=== PATIENT | female | born 1960 | race Hispanic/Latino ===

== ENCOUNTER 2018-09-21 22:20 | Emergency (ER) | payer OTHER, SELFPAY ==
[2018-09-21] MEDS ORDERED: SODIUM CHLORIDE 0.9% 1000ML 2,000 ML IV ONE (22:38)
[2018-09-21] MEDS ORDERED: ONDANSETRON HCL 4 MG/2 ML VIAL ONE (22:38)
[2018-09-21 22:44] LABS: BASOPHILS % (AUTO) 0.3 % (0.0-5.0); EOSINOPHILS % (AUTO) 0.4 % (0.0-8.0); HEMATOCRIT 46.8 % (36-48); MEAN CORPUSCULAR HEMOGLOBIN 30.3 pg (27.0-33.0); MEAN CORPUSCULAR HGB CONC 33.7 g/dL (32.0-36.0); NEUTROPHILS % (AUTO) 78.3 % (40.0-77.0); NUCLEATED RED BLOOD CELLS 0.1 % (0.0-0.19); PLATELET COUNT (AUTO) 230 K/uL (130-400); RED CELL DISTRIBUTION WIDTH 13.1 % (11.0-15.5); WHITE BLOOD COUNT (AUTO) 7.9 K/uL (4.8-10.8)
[2018-09-21 22:47] LABS: APPEARANCE,URINE Cloudy (CLEAR); BILIRUBIN,URINE Moderate (NEGATIVE); COLOR,URINE Dark Yellow (YELLOW); GLUCOSE, URINE (UA) Negative (NEGATIVE); KETONES,URINE 15 mg/dL (NEGATIVE); LEUKOCYTE ESTERASE ,URINE Trace (NEGATIVE); NITRATE,URINE Negative (NEGATIVE); OCCULT BLOOD,URINE Negative (NEGATIVE); PH,URINE 5.5 (5.0-8.0); PROTEIN,URINE POS 2+ (NEGATIVE)
[2018-09-21 22:54] LABS: BACTERIA,URINE Moderate /HPF (None Seen); MUCUS,URINE Few LPF (None Seen); POTASSIUM 3.3 mmol/L (3.5-5.1); RBC,URINE 0-1 /HPF (0-1)
[2018-09-21 23:00] LABS: ALBUMIN 4.1 g/dL (3.5-5.0); BILIRUBIN,TOTAL 0.6 mg/dL (0.2-1.0); TOTAL PROTEIN, SERUM 9.5 g/dL (6.0-8.3)
== END 2018-09-22 01:25 | disposition home or self-care (01) ==
LOC: EDH 22:20
DX: R19.7 Diarrhea, unspecified (principal); Z90.710 Acquired absence of both cervix and uterus; Z90.49 Acquired absence of other specified parts of digestive tract
CPT/HCPCS: 36415; 80053; 81001; 85025; 96360; 96361; 99283; J7030; 96374; J2405

== ENCOUNTER 2019-03-14 23:03 | Emergency (ER) | payer OTHER ==
[2019-03-15 00:03] LABS: BASOPHILS % (AUTO) 0.4 % (0.0-5.0); EOSINOPHILS % (AUTO) 2.5 % (0.0-8.0); HEMATOCRIT 35.5 % (36-48); LYMPHOCYTES % (AUTO) 41.7 % (21.0-51.0); MEAN CORPUSCULAR HGB CONC 34.2 g/dL (32.0-36.0); MEAN CORPUSCULAR VOLUME 90.5 fL (79-99); MONOCYTES % (AUTO) 6.2 % (3.0-13.0); NEUTROPHILS % (AUTO) 49.2 % (40.0-77.0); PLATELET COUNT (AUTO) 233 K/uL (130-400); RED BLOOD CELL COUNT(AUTO) 3.92 MIL/uL (4.00-5.50); RED CELL DISTRIBUTION WIDTH 12.9 % (11.0-15.5); WHITE BLOOD COUNT (AUTO) 7.3 K/uL (4.8-10.8)
[2019-03-15 00:31] LABS: CREATININE 0.7 mg/dL (0.5-1.5); POTASSIUM 3.5 mmol/L (3.5-5.1)
[2019-03-15 00:36] LABS: ALBUMIN 3.3 g/dL (3.5-5.0); BILIRUBIN,TOTAL 0.2 mg/dL (0.2-1.0); TOTAL PROTEIN, SERUM 7.1 g/dL (6.0-8.3)
== END 2019-03-15 00:59 | disposition home or self-care (01) ==
LOC: EDH 23:03
DX: H81.399 Other peripheral vertigo, unspecified ear (principal); G44.209 Tension-type headache, unspecified, not intractable; Z90.49 Acquired absence of other specified parts of digestive tract; Z98.51 Tubal ligation status
CPT/HCPCS: 36415; 80053; 85025; 96372

== ENCOUNTER 2019-04-23 23:17 | Emergency (ER) | payer OTHER ==
[2019-04-23 23:52] LABS: BASOPHILS % (AUTO) 0.7 % (0.0-5.0); EOSINOPHILS % (AUTO) 1.8 % (0.0-8.0); HEMATOCRIT 37.9 % (36-48); LYMPHOCYTES % (AUTO) 37.4 % (21.0-51.0); MEAN CORPUSCULAR HGB CONC 34.3 g/dL (32.0-36.0); MEAN CORPUSCULAR VOLUME 90.4 fL (79-99); MONOCYTES % (AUTO) 7.1 % (3.0-13.0); PLATELET COUNT (AUTO) 255 K/uL (130-400); RED CELL DISTRIBUTION WIDTH 12.9 % (11.0-15.5)
[2019-04-24] LABS: CREATININE 0.7 mg/dL (0.5-1.5); POTASSIUM 3.4 mmol/L (3.5-5.1)
[2019-04-24 00:05] LABS: ALBUMIN 3.6 g/dL (3.5-5.0); BILIRUBIN,TOTAL 0.3 mg/dL (0.2-1.0)
[2019-04-24] MEDS ORDERED: ASPIRIN 325 MG TABLET ONE (00:12)
[2019-04-24] MEDS ORDERED: NITROGLYCERIN 0.4 MG SL TAB SL ONE (00:12)
== END 2019-04-24 02:58 | disposition home or self-care (01) ==
LOC: EDH 23:17
DX: R07.89 Other chest pain (principal); F41.9 Anxiety disorder, unspecified; L40.9 Psoriasis, unspecified; Z90.49 Acquired absence of other specified parts of digestive tract; Z98.51 Tubal ligation status
CPT/HCPCS: 36415; 71045; 80053; 82550; 84484; 85025; 93005

== ENCOUNTER 2019-10-14 20:13 | Emergency (ER) | payer OTHER ==
[2019-10-14] MEDS ORDERED: ASPIRIN 325 MG TABLET ONE (20:44)
[2019-10-14] MEDS ORDERED: LORAZEPAM 2 MG/ML 1 ML VIAL ONE (20:45)
[2019-10-14 21:14] LABS: BASOPHILS % (AUTO) 0.2 % (0.0-5.0); EOSINOPHILS % (AUTO) 2.2 % (0.0-8.0); HEMATOCRIT 37.7 % (36-48); MEAN CORPUSCULAR HEMOGLOBIN 29.7 pg (27.0-33.0); MEAN CORPUSCULAR HGB CONC 33.4 g/dL (32.0-36.0); MEAN CORPUSCULAR VOLUME 88.9 fL (79-99); MONOCYTES % (AUTO) 8.5 % (3.0-13.0); NEUTROPHILS % (AUTO) 55.9 % (40.0-77.0); PLATELET COUNT (AUTO) 226 K/uL (130-400); RED BLOOD CELL COUNT(AUTO) 4.24 MIL/uL (4.00-5.50); RED CELL DISTRIBUTION WIDTH 12.7 % (11.0-15.5)
[2019-10-14 21:36] LABS: CREATININE 0.6 mg/dL (0.5-1.5); POTASSIUM 3.8 mmol/L (3.5-5.1)
[2019-10-14 21:37] LABS: INR 0.92 (0.85-1.15); PARTIAL THROMBOPLASTIN TIME 25.6 SEC (26.3-35.5); PROTHROMBIN TIME 9.7 SEC (9.6-11.6)
[2019-10-14 21:40] LABS: ALBUMIN 3.4 g/dL (3.5-5.0); BILIRUBIN,TOTAL 0.3 mg/dL (0.2-1.0); TOTAL PROTEIN, SERUM 7.7 g/dL (6.0-8.3)
== END 2019-10-14 23:31 | disposition home or self-care (01) ==
LOC: EDH 20:13
DX: R07.89 Other chest pain (principal); R20.2 Paresthesia of skin; R06.02 Shortness of breath; L40.9 Psoriasis, unspecified; Z98.51 Tubal ligation status; Z90.49 Acquired absence of other specified parts of digestive tract
CPT/HCPCS: 36415; 70450; 71045; 80053; 82550; 84484 ×2; 85025; 85610; 85730; 93005 ×2; 96374; 99285; J2060

== ENCOUNTER 2023-05-11 15:33 | Emergency (ER) | payer BC ==
[~2023-05-11] VITALS: Ht 160 cm; Wt 77.1 kg
[2023-05-11 15:43] VITALS: BP 143/96; PULSE 68; RESP 16; O2SAT 97
[2023-05-11] MEDS ORDERED: OLOP2.5D12 OP (17:10)
== END 2023-05-11 17:36 | disposition home or self-care (01) ==
LOC: EDH 15:33
DX: H10.9 Unspecified conjunctivitis (principal); Z90.49 Acquired absence of other specified parts of digestive tract
CPT/HCPCS: 99282

== ENCOUNTER 2025-01-04 16:54 | Emergency (ER) | payer BC ==
[~2025-01-04] VITALS: Ht 160 cm; Wt 89.4 kg
[~2025-01-04 16:54] MED LIST: OLOP2.5D12 OP
--- NOTE | 2025-01-04 19:05 | HMCIMG ---
TOE(S) 2+VWS RT INDICATION: r/o fx right 2nd toe TECHNIQUE: TOE(S) 2+VWS RT. FINDINGS AND IMPRESSION: Comminuted mildly displaced fracture of the distal phalanx of the second toe. There is diffuse soft tissue swelling involving the second toe No radiopaque foreign body is identified.
[2025-01-04] MEDS ORDERED: CEPH500B PO (19:49)
--- NOTE | 2025-01-04 19:49 | ERN ---
General Chief Complaint: Toe Pain/Injury Stated Complaint: RT FOOT TOE INJURY Time Seen by MD: 17:02 Time Seen by Midlevel: 17:02 Source: patient History of Present Illness Initial Comments Patient is a 64-year-old female with presenting to the emergency department with pain and swelling to her right 2nd toe. Patient states she dropped a lamp on her toe. She sustained a superficial abrasion/laceration to the right 2nd toe on progressively developed worsening swelling and bruising. She became concerned that she might have developed an abscess so she reported to the ER for further evaluation. Denies any fever, chills, or any other symptoms at this time. Allergies: Coded Allergies: No Known Drug Allergies (Unverified Allergy, Unknown, 03/15/19) Home Meds Active Scripts Olopatadine HCl (Pataday) 2.5 Ml Drops, 2.5 ML OP DAILY for 15 Days, #60 DROP Prov:DILEEP VARGAS MD 05/11/23 Past Medical History Past Medical History: No Pertinent History Past Surgical History: Cholecystectomy, BTL Social History Social History: Lives with family ROS Dictation CONSTITUTIONAL: Negative except for HPI HEAD/FACE: Negative except for HPI EENT: Negative except for HPI RESPIRATORY: Negative except for HPI GASTROINTESTINAL/ABDOMINAL: Negative except for HPI GENITOURINARY: Negative except for HPI MUSCULOSKELETAL: Negative except for HPI INTEGUMENTARY: Negative except for HPI NEUROLOGICAL/PSYCH: Negative except for HPI HEMATOLOGIC/LYMPHATIC: Negative except for HPI All Systems Negative, Except as noted above. 13 point review of systems assessed and all negative except for above. Physical Exam Physical Exam Dictation PHYSICAL EXAM: GENERAL: alert,, awake oriented x 3 HEENT: EOMI, Sclera non icteric, moist mucosa NECK: Supple, no JVD, trachea midline LUNGS: Clear breath sounds bilaterally. No wheezes HEART: Regular rate and rhythm. Normal S1 and S2, without murmurs ABD: Abdomen soft, nontender. Bowel sounds present EXT: Mild swelling and tenderness to the 2nd distal phalanx of the right foot NEURO: Alert and oriented to person, follows commands MDM MDM: Patient is a 64-year-old female with presenting to the emergency department with pain and swelling to her right 2nd toe. Patient states she dropped a lamp on her toe. She sustained a superficial abrasion/laceration to the right 2nd toe on progressively developed worsening swelling and bruising. She became concerned that she might have developed an abscess so she reported to the ER for further evaluation. Denies any fever, chills, or any other symptoms at this time. On physical examination there is some mild swelling and tenderness to the 2nd distal phalanx. X-ray reveals a comminuted fracture. There was an scabbing lesion overlying the superior aspect of the 2nd digit. There is swelling with bruising. She could have an underlying abscess however there is nothing drainable at this time. We will treat empirically with Keflex outpatient. Return precautions discussed. Patient is stable for discharge Differential diagnosis: Fracture, contusion, abscess There are no social concerns with this patient. Prescription drug management Prescriptions will include: Keflex Medical management and examination interpretation discussions were had by me with other qualified healthcare professionals as indicated for the patient's care. ED Course Orders Procedure Category Date Status Time Toe(S) 2+Vws Rt RAD 01/04/25 Resulted 18:14 Vital Signs Date Time Temp Pulse Resp B/P (MAP) Pulse Ox O2 Delivery O2 Flow Rate FiO2 01/04/25 17:16 98.8 64 18 119/71 100 Room Air 01/04/25 17:16 98.8 64 18 119/71 100 Room Air* 0 21 DX & DISP Disposition: Discharge Departure Impression: Primary Impression: Fracture of distal phalanx of toe of right foot Additional Impression: Hematoma of toe of right foot Condition: Stable Scripts Cephalexin Monohydrate (Keflex) 500 Mg Cap 500 MG PO BID for 5 Days, #10 CAP Prov: SERGIO HUBBARD 01/04/25 Referrals: KISHA GARAY MD (PCP) Time of Disposition: 19:44 I have reviewed the case, and I agree with, Diagnosis and Plan I performed the substantive portion of the visit. I have reviewed and personally made and approve the management plan that is documented in the note by myself or the JESÚS. I acknowledge for responsibility for the patient's management plan. SERGIO HUBBARD Jan 04, 2025 19:49
[2025-01-04 20:05] VITALS: BP 125/66; PULSE 63; RESP 15; TEMP 97.8; O2SAT 100
--- NOTE | 2025-01-04 20:05 | NUR ---
PATIENTS R GREAT TOE JESSICA TAPED WITH 2ND TOE
== END 2025-01-04 20:10 | disposition home or self-care (01) ==
LOC: EDH 16:54
DX: S92.531A Displaced fracture of distal phalanx of right lesser toe(s), initial encounter for closed fracture (principal); Z90.49 Acquired absence of other specified parts of digestive tract; Z98.51 Tubal ligation status; W20.8XXA Other cause of strike by thrown, projected or falling object, initial encounter; Y93.89 Activity, other specified; Y92.89 Other specified places as the place of occurrence of the external cause; Y99.8 Other external cause status
CPT/HCPCS: 73660; 99283

== ENCOUNTER 2025-07-28 16:04 | Emergency (ER) | payer BC ==
[~2025-07-28] VITALS: Ht 160 cm; Wt 81.6 kg
[~2025-07-28 16:04] MED LIST changes: +CEPH500B PO
[2025-07-28 16:06] VITALS: TEMP 98.2
[2025-07-28 16:37] LABS: IMMATURE GRANULOCYTE ABSOLUTE 0.02 K/uL (0-1); NUCLEATED RED BLOOD CELLS 0.0 % (0.0-0.19); PLATELET COUNT (AUTO) 230 K/uL (130-400); RED BLOOD CELL COUNT(AUTO) 4.42 MIL/uL (4.00-5.50); RED CELL DISTRIBUTION WIDTH 12.7 % (11.0-15.5); WHITE BLOOD COUNT (AUTO) 7.7 K/uL (4.8-10.8)
[2025-07-28 16:46] LABS: CREATININE 0.6 mg/dL (0.5-1.0); GLOMERULAR FILTR. RATE CALC 101.0 mL/min (>90); GLUCOSE,RANDOM 99.0 mg/dL (70-105); SODIUM SERUM 136.0 mmol/L (136-145); UREA NITROGEN, BLOOD 10.0 mg/dL (7-18)
[2025-07-28 16:50] LABS: ASPARTATE AMINOTRANSFERASE 35.0 U/L (10-37); TOTAL PROTEIN, SERUM 8.0 g/dL (6.0-8.3)
--- NOTE | 2025-07-28 17:03 | EKG ---
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
--- NOTE | 2025-07-28 18:03 | HMCIMG ---
EXAM: CR Chest, 1 View. CLINICAL HISTORY: sob COMPARISON: None provided. FINDINGS: LUNGS: The lungs show no infiltrate or other acute finding. PLEURAL SPACES: No pleural effusion or pneumothorax. MEDIASTINUM: The cardiomediastinal silhouette is within normal limits. BONES: No acute osseous abnormality. IMPRESSION: No acute cardiopulmonary pathology is evident. /[place]
[2025-07-28 18:22] VITALS: BP 148/81; PULSE 63; RESP 17; O2SAT 96
--- NOTE | 2025-07-28 18:27 | ERN ---
ED Note History of Present Illness Stated Complaint: SOB, DIZZY Chief Complaint: Shortness of Breath Time Seen by MD: 16:07 Dictation: 63-year-old female presenting to the emergency department with episode of generalized weakness nausea and mild shortness of breath, patient reports past few days with similar symptoms. No current chest pain or fever no abdominal pain. Allergies: Coded Allergies: No Known Drug Allergies (Unverified Allergy, Unknown, 03/15/19) Home Meds Active Scripts Ondansetron (Ondansetron Odt) 4 Mg Tab.rapdis, 4 MG PO BID for vomiting for 5 Days, #10 TAB Prov:JESUS ROBERTSON MD 07/28/25 Cephalexin Monohydrate (Keflex) 500 Mg Cap, 500 MG PO BID for 5 Days, #10 CAP Prov:SERGIO HUBBARD 01/04/25 Olopatadine HCl (Pataday) 2.5 Ml Drops, 2.5 ML OP DAILY for 15 Days, #60 DROP Prov:DILEEP VARGAS MD 05/11/23 Past Medical History Past Medical History: No Pertinent History Surgical History: Cholecystectomy, BTL Social History: Lives with family Review of System Dictation Constitutional: Negative for fever,chills, and weight loss Eyes: Negative for injury, pain,redness, and discharge ENT: Negative for injury,pain or swelling Cardiovascular: Negative for chest pain, palpitations, and edema Respiratory: Per HPI Abdomen/GI: Per HPI : Negative for injury, bleeding and discharge MS/Extremity: Negative for injury and deformity Skin: Negative for rash, and discoloration Neuro: Negative for headache, weakness, numbness, tingling, and seizure Psych: Negative for suicide ideation, homicidal ideation, and hallucinations Initial Vital Sign VS Vital Signs Date Time Temp Pulse Resp B/P (MAP) Pulse Ox O2 Delivery O2 Flow Rate FiO2 07/28/25 16:06 98.2 52 16 147/73 98 Room Air 0 07/28/25 18:22 21 Physical Exam Dictation General: awake, alert, NAD Head/Face: Normocephalic, atraumatic Eyes: PERRL, EOMI, vision at baseline ENT: oral cavity clear, TMs clear, no signs of infection Neck: Trachea midline, supple, no nuchal rigidity Cardiovascular: RRR, normal S1/S2, No MRGs, no JVD Respiratory: CTAB, no respiratory distress, No rales or wheezes Abdomen: Soft, non-tender, non-distended, normal bowel sounds, no guarding or rebound. Skin: Warm, dry, normal turgor, no rash MS/Extremity: Pulses equal, no cyanosis, neurovascular intact, FROM Neuro: COAx4, GCS 15, strength 5/5, CN 2-12 intact, normal cerebellar exam, normal gait, Psych: Normal behavior, mood, and affect normal Results (Laboratory/Radiology) Laboratory/Radiology Laboratory Tests Test 07/28/25 16:29 07/28/25 18:26 White Blood Count 7.7 K/uL (4.8-10.8) Red Blood Count 4.42 MIL/uL (4.00-5.50) Hemoglobin 13.7 g/dL (12.0-16.0) Hematocrit 40.9 % (36-48) Mean Corpuscular Volume 92.5 fL (79-99) Mean Corpuscular Hemoglobin 31.0 pg (27.0-33.0) Mean Corpuscular Hemoglobin Concent 33.5 g/dL (32.0-36.0) Red Cell Distribution Width 12.7 % (11.0-15.5) Platelet Count 230 K/uL (130-400) Mean Platelet Volume 10.7 fL (7.5-10.5) H Immature Granulocyte % (Auto) 0.3 % (0-1) Neutrophils (%) (Auto) 59.3 % (40.0-77.0) Lymphocytes (%) (Auto) 29.9 % (21.0-51.0) Monocytes (%) (Auto) 8.5 % (3.0-13.0) Eosinophils (%) (Auto) 1.7 % (0.0-8.0) Basophils (%) (Auto) 0.3 % (0.0-5.0) Neutrophils # (Auto) 4.6 K/uL (1.8-7.7) Lymphocytes # (Auto) 2.3 K/uL (1.0-4.8) Monocytes # (Auto) 0.7 K/uL (0.1-1.0) Eosinophils # (Auto) 0.13 K/uL (0.00-0.70) Basophils # (Auto) 0.02 K/uL (0.00-0.20) Absolute Immature Granulocyte (auto 0.02 K/uL (0-1) Nucleated Red Blood Cells 0.0 % (0.0-0.19) Sodium Level 136 mmol/L (136-145) Potassium Level 3.9 mmol/L (3.5-5.1) Chloride Level 100 mmol/L (101-111) L Carbon Dioxide Level 30 mmol/L (21-32) Blood Urea Nitrogen 10 mg/dL (7-18) Creatinine 0.6 mg/dL (0.5-1.0) Glomerular Filtration Rate Calc 101 mL/min (>90) Random Glucose 99 mg/dL (70-105) Total Calcium 8.5 mg/dL (8.5-10.1) Total Bilirubin 0.4 mg/dL (0.2-1.0) Direct Bilirubin 0.1 mg/dL (0.0-0.3) Aspartate Amino Transf (AST/SGOT) 35 U/L (10-37) Alanine Aminotransferase (ALT/SGPT) 41 U/L (12-78) Alkaline Phosphatase 127 U/L (50-136) Troponin I High Sensitivity 4 ng/L (4-50) B-Type Natriuretic Peptide 34 pg/mL (0-100) Total Protein 8.0 g/dL (6.0-8.3) Albumin 3.8 g/dL (3.5-5.0) Influenza Type A Antigen Negative For Type A Influenza Type B Antigen Negative For Type B SARS-CoV-2 Antigen (Rapid) PRESUMPTIVE NEGATIVE Labs Reviewed?: Yes EKG Comment: Heart rate 48 sinus bradycardia, right bundle-branch block LVH, no STEMI or STEMI equivalent ED Course ED Course Orders Procedure Category Date Status Time B-Type Natriuretic LAB 07/28/25 Complete Peptide 16:07 12 Lead Ekg Tracing- EKG 07/28/25 Complete Technical 16:07 Basic Metabolic Panel LAB 07/28/25 Complete 16:07 Cbc With Differential LAB 07/28/25 Complete 16:07 Hepatic Function Panel LAB 07/28/25 Complete 16:07 Troponin I High LAB 07/28/25 Complete Sensitivity 16:07 Chest 1vw RAD 07/28/25 Resulted 16:07 Covid19 (Sars Antigen LAB 07/28/25 Complete Rapid) 16:07 Influenza Type A & B, LAB 07/28/25 Complete Rapid 16:07 Ondansetron Odt 4mg PHA 07/28/25 Complete Tab (Zofran 4mg Odt) 17:36 Current Medications Medications (Trade) Dose Ordered Sig/Ajith Route PRN Reason Start Time Stop Time Status Last Admin Dose Admin Ondansetron HCl (zoFRAN 4MG ODT) 4 mg ONCE ONCE SL 07/28/25 17:36 07/28/25 17:38 DC 07/28/25 18:25 Vital Signs Date Time Temp Pulse Resp B/P (MAP) Pulse Ox O2 Delivery O2 Flow Rate FiO2 07/28/25 18:22 63 17 148/81 96 Room Air* 0 21 07/28/25 16:06 98.2 52 16 147/73 98 Room Air 0 HEART Score Response (Comments) Value History: Low suspicion (0) 0 Age: 45-65yrs (+1) 1 Risk Factors: 1-2 risk factors (+1) 1 Initial Troponin: Normal limit (0) 0 Total 2 Medical Decision Making MDM Patient handed off at shift change pending results of workup still pending flu and COVID swabs, initial cardiac workup is negative ECG shows sinus bradycardia. Hemodynamically stable no respiratory distress. DX & DISP Disposition: Discharge Departure Impression: Primary Impression: Dizzy Condition: Stable Scripts Ondansetron (Ondansetron Odt) 4 Mg Tab.rapdis 4 MG PO BID for vomiting for 5 Days, #10 TAB Prov: JESUS ROBERTSON MD 07/28/25 Referrals: EDUARDO DIEGO DO (PCP) JESUS ROBERTSON MD Jul 28, 2025 18:26 JURGEN MILNER Jul 28, 2025 19:09
[2025-07-28 18:58] LABS: COVID19 (SARS ANTIGEN RAPID) PRESUMPTIVE NEGATIVE (NEGATIVE); INFLUENZA TYPE A Negative For Type A (NEGATIVE); INFLUENZA TYPE B Negative For Type B (NEGATIVE)
[2025-07-28] MEDS ORDERED: ONDA-243 PO (19:01)
== END 2025-07-28 19:21 | disposition home or self-care (01) ==
LOC: EDH 16:04
DX: R42 Dizziness and giddiness (principal); R53.1 Weakness; R11.0 Nausea; R06.02 Shortness of breath; Z90.49 Acquired absence of other specified parts of digestive tract; Z79.899 Other long term (current) drug therapy; Z20.822 Contact with and (suspected) exposure to COVID-19
CPT/HCPCS: 36415; 71045; 80048; 80076; 83880; 84484; 85025; 87426; 87804; 93005; 99284

== ENCOUNTER 2025-09-16 16:37 | Emergency (ER) | payer BC ==
[~2025-09-16] VITALS: Ht 160 cm; Wt 86.2 kg
[~2025-09-16 16:37] MED LIST changes: +ONDA-243 PO
--- NOTE | 2025-09-16 16:56 | ERN ---
ED Note History of Present Illness Stated Complaint: ABDOMINAL PAIN Chief Complaint: Abdominal Pain Time Seen by MD: 16:48 Dictation: 64-YEAR-OLD FEMALE COMING IN TODAY WITH SUPRAPUBIC PAIN WITHOUT NAUSEA VOMITING FEVER CHILLS ONSET WAS YESTERDAY. SHE DENIES ANY CHANGE IN URINATION SHE DENIES FLANK PAIN AT THIS TIME. SHE HAS TAKEN NOTHING PRIOR TO ARRIVAL FOR PAIN STATES SHE TRIED TO GO TO HER DOCTOR AT [facility] AND THEY WERE UNABLE TO SEE YOUR TODAY. Allergies: Coded Allergies: No Known Drug Allergies (Unverified Allergy, Unknown, 03/15/19) Home Meds Active Scripts Ondansetron (Ondansetron Odt) 4 Mg Tab.rapdis, 4 MG PO BID for vomiting for 5 Days, #10 TAB Prov:JESUS ROBERTSON MD 07/28/25 Cephalexin Monohydrate (Keflex) 500 Mg Cap, 500 MG PO BID for 5 Days, #10 CAP Prov:SERGIO HUBBARD PAC 01/04/25 Olopatadine HCl (Pataday) 2.5 Ml Drops, 2.5 ML OP DAILY for 15 Days, #60 DROP Prov:DILEEP VARGAS MD 05/11/23 Past Medical History Past Medical History: No Pertinent History Surgical History: Cholecystectomy, BTL Social History: Lives with family History: Not Applicable RN Note Reviewed/Agreed w/PFSH: Yes Review of System Dictation CONSTITUTIONAL: NEGATIVE EXCEPT FOR HPI HEAD/FACE: NEGATIVE EXCEPT FOR HPI EENT: NEGATIVE EXCEPT FOR HPI RESPIRATORY: NEGATIVE EXCEPT FOR HPI GASTROINTESTINAL/ABDOMINAL: NEGATIVE EXCEPT FOR HPI SUPRAPUBIC TENDERNESS GENITOURINARY: NEGATIVE EXCEPT FOR HPI MUSCULOSKELETAL: NEGATIVE EXCEPT FOR HPI INTEGUMENTARY: NEGATIVE EXCEPT FOR HPI NEUROLOGICAL/PSYCH: NEGATIVE EXCEPT FOR HPI HEMATOLOGIC/LYMPHATIC: NEGATIVE EXCEPT FOR HPI ALL SYSTEMS NEGATIVE, EXCEPT NOTED ABOVE. 13 POINT REVIEW OF SYSTEMS ASSESSED AND ALL NEGATIVE EXCEPT FOR ABOVE. Initial Vital Sign VS Vital Signs Date Time Temp Pulse Resp B/P (MAP) Pulse Ox O2 Delivery O2 Flow Rate FiO2 09/16/25 16:39 98.2 58 20 129/76 99 Room Air 0 09/16/25 17:30 21 Physical Exam Dictation VITAL SIGNS REVIEWED GENERAL APPEARANCE: ALERT, ORIENTED X 3, N MILD KLAMATH DISTRESS, WELL DEVELOPED, NOURISHED. HEAD AND FACE: NON-TRAUMATIC. EYES: PERRL, PINK CONJUNCTIVAS, EYELID NO TRAUMA, ANTERIOR CHAMBER WITH ARCUS SENILIS. EARS: PINNAS INTACT AND NO SIGNS OF TRAUMA OR ERYTHEMA EAR CANALS CLEAR AND NO DISCHARGE TM NO ERYTHEMA NOSE: NO DISCHARGE, NO BLEEDING. OROPHARYNX: MOUTH NORMAL, TONGUE PINK, PHARYNX CLEAR,NO ERYTHEMA, TONSILS NO EXUDATES, NO ABSCESSES NOTED, MUCOUS MEMBRANE MOIST NECK: SUPPLE, NON-TENDER, NO THYROMEGALY, NO MASSES, NO JVD, NO BRUITS BREAST:DEFERRED CHEST:NO TENDERNESS, NO CREPITUS, NO PARADOXICAL MOVEMENT, NO RETRACTIONS LUNGS:CLEAR, WELL-VENTILATED, SYMMETRIC, NO RALES, NO WHEEZING, NO RHONCHI, NO STRIDOR, GOOD BREATH SOUNDS BILATERALLY HEART: REGULAR RATE, REGULAR RHYTHM, NO MURMUR, NO GALLOPS VASCULAR: NO PERIPHERAL EDEMA, ABDOMEN: MILD SUPRAPUBIC TENDERNESS WITH PALPATION. NEGATIVE REBOUND NEGATIVE CVAT BY RECTAL: DEFERRED GENITAL: DEFERRED NEUROLOGICAL: NORMAL SPEECH, MOTOR FUNCTION INTACT, SENSORY FUNCTION INTACT MUSCULOSKELETAL: NECK NONTENDER, FULL RANGE OF MOTION, BACK NONTENDER, FULL RANGE OF MOTION, EXTREMITIES: NONTENDER, FULL RANGE OF MOTION SKIN: COLOR PINK, DRY, NO TURGOR, NO RASH, NO LACERATIONS, NO ABRASIONS, NO CONTUSIONS. LYMPHATIC: DEFERRED Results (Laboratory/Radiology) Laboratory/Radiology Laboratory Tests Test 09/16/25 16:55 09/16/25 17:25 Urine Color YELLOW (YELLOW) Urine Appearance CLEAR (CLEAR) Urine pH 5.5 (5.0-8.0) Urine Specific [place] 1.028 (1.001-1.031) Urine Protein NEGATIVE mg/dL (NEGATIVE) Urine Glucose (UA) NEGATIVE mg/dL (NEGATIVE) Urine Ketones NEGATIVE mg/dL (NEGATIVE) Urine Occult Blood NEGATIVE (NEGATIVE) Urine Nitrate NEGATIVE (NEGATIVE) Urine Bilirubin NEGATIVE mg/dL (NEGATIVE) Urine Urobilinogen 2.0 mg/dL (0.2-1.0) H Urine Leukocyte Esterase NEGATIVE Sho/uL Urine RBC 0-1 /HPF (0-1) Urine WBC 0-1 /HPF (0-1) Urine Squamous Epithelial Cells MOD /HPF (0-2) Urine Bacteria RARE /HPF (None Seen) White Blood Count 7.7 K/uL (4.8-10.8) Red Blood Count 4.51 MIL/uL (4.00-5.50) Hemoglobin 14.0 g/dL (12.0-16.0) Hematocrit 41.3 % (36-48) Mean Corpuscular Volume 91.6 fL (79-99) Mean Corpuscular Hemoglobin 31.0 pg (27.0-33.0) Mean Corpuscular Hemoglobin Concent 33.9 g/dL (32.0-36.0) Red Cell Distribution Width 12.9 % (11.0-15.5) Platelet Count 234 K/uL (130-400) Mean Platelet Volume 10.6 fL (7.5-10.5) H Immature Granulocyte % (Auto) 0.1 % (0-1) Neutrophils (%) (Auto) 61.1 % (40.0-77.0) Lymphocytes (%) (Auto) 30.1 % (21.0-51.0) Monocytes (%) (Auto) 6.8 % (3.0-13.0) Eosinophils (%) (Auto) 1.6 % (0.0-8.0) Basophils (%) (Auto) 0.3 % (0.0-5.0) Neutrophils # (Auto) 4.7 K/uL (1.8-7.7) Lymphocytes # (Auto) 2.3 K/uL (1.0-4.8) Monocytes # (Auto) 0.5 K/uL (0.1-1.0) Eosinophils # (Auto) 0.12 K/uL (0.00-0.70) Basophils # (Auto) 0.02 K/uL (0.00-0.20) Absolute Immature Granulocyte (auto 0.01 K/uL (0-1) Nucleated Red Blood Cells 0.0 % (0.0-0.19) Sodium Level 137 mmol/L (136-145) Potassium Level 3.6 mmol/L (3.5-5.1) Chloride Level 105 mmol/L (101-111) Carbon Dioxide Level 30 mmol/L (21-32) Blood Urea Nitrogen 10 mg/dL (7-18) Creatinine 0.6 mg/dL (0.5-1.0) Glomerular Filtration Rate Calc 101 mL/min (>90) Random Glucose 94 mg/dL (70-105) Total Calcium 8.4 mg/dL (8.5-10.1) L Lipase 39 U/L (16-77) EXAMINATION: COMPLETE TRANSABDOMINAL ULTRASOUND OF PELVIS. CLINICAL HISTORY: Suprapubic and pelvic pain. COMPARISON: None provided. TECHNIQUE: Multiple real-time grayscale images of the pelvis were obtained with transabdominal transducer. FINDINGS: The uterus is not visualized, post hysterectomy status. Both the ovaries are obscured by overlying bowel gas. There is no free fluid in the pelvis. IMPRESSION: Post hysterectomy status No significant abnormality. /[place] Labs Reviewed?: Yes ED Course ED Course Orders Procedure Category Date Status Time Cbc With Differential LAB 09/16/25 Complete 16:49 Urinalysis Profile LAB 09/16/25 Complete 16:49 Lipase LAB 09/16/25 Complete 16:49 Basic Metabolic Panel LAB 09/16/25 Complete 16:49 Ibuprofen 800 Mg Tab PHA 09/16/25 Complete (Motrin) 17:00 Us Pelvic Non-Ob US 09/16/25 Resulted Limited 17:56 Current Medications Medications (Trade) Dose Ordered Sig/Ajith Route PRN Reason Start Time Stop Time Status Last Admin Dose Admin Ibuprofen (moTRIN) 800 mg ONCE ONCE PO 09/16/25 17:00 09/16/25 17:01 DC 09/16/25 17:55 Vital Signs Date Time Temp Pulse Resp B/P (MAP) Pulse Ox O2 Delivery O2 Flow Rate FiO2 09/16/25 19:06 98.2 55 18 127/79 99 Room Air* 0 21 09/16/25 17:30 98.2 55 18 127/79 99 Room Air* 0 21 09/16/25 16:39 98.2 58 20 129/76 99 Room Air 0 1915/SPOKE TO PATIENT AT LENGTH REGARDING CLINICAL FINDINGS. SHE STATES HER PAIN IS COMPLETELY RESOLVED AFTER IBUPROFEN. SHE NOW STATES THAT SHE HAS A HISTORY OF LACTOSE INTOLERANCE AND ATE A BANANA SPLIT TWO DAYS AGO AND THEN HAS BEEN DRINKING REGULAR MILK. STRONGLY ADVISED HER TO TAKE LACTAID [id number] AND SEE HER DOCTOR Medical Decision Making MDM MEDICAL DISCHARGE MAKING BASED ON BASIC LABS TO INCLUDE URINE AND ULTRASOUND OF PELVIS. PATIENT HAS STATUS POST HYSTERECTOMY OVARIES ARE OBSCURED BY GAS LABS ARE COMPLETELY UNREMARKABLE. PATIENT IS PAIN FREE AND WE WILL BE DISCHARGED HOME TO FOLLOW UP WITH HER DOCTOR. RECOMMENDED LACTATID WHEN SHE IS DRINKING DAIRY PRODUCTS DX & DISP Disposition: Discharge Departure Impression: Primary Impression: Pain, female pelvic Additional Impression: Lactose intolerance Condition: Stable Scripts Ibuprofen (Ibuprofen 800 mg Tab) 800 Mg Tab 800 MG PO Q8H PRN for fever or pain, #30 TAB 0 Refills Prov: JURGEN MILNER 09/16/25 Additional Instructions: FOLLOW-UP WITH PRIMARY CARE PROVIDER IN 1 TO 2 DAYS. TAKE MEDICATIONS DIRECTED HERE IN THE EMERGENCY ROOM. OKAY TO CONTINUE HOME MEDICATIONS UNLESS OTHERWISE DISCUSSED DURING YOUR VISIT IN THE EMERGENCY ROOM TODAY. RETURN TO YOUR NEAREST EMERGENCY ROOM IF SYMPTOMS WORSEN OR IF THERE IS NO IMPROVEMENT. CALL 911 IF YOU NEED IMMEDIATE ASSISTANCE. TAKE TYLENOL OR MOTRIN [id number] NEEDED AND IF NO CONTRAINDICATIONS ARE PRESENT. INCREASE ORAL HYDRATION. A WOUND CULTURE OR URINE CULTURE WAS ORDERED HERE IN THE EMERGENCY ROOM DEPARTMENT PLEASE FOLLOW-UP WITH PRIMARY CARE PROVIDER AND ADVISE THEM TO GET REPEAT PORTS FROM OUR FACILITY. IF YOU HAD ANY LEANDER WRAP/SPLINTS THAT WERE APPLIED HERE, PLEASE DO NOT REMOVE THEM UNTIL YOU SEE YOUR PRIMARY CARE OR SPECIALTY. SUGGEST TAKING LACTAID/[id number] AND WHEN HAVING DAIRY PRODUCTS OR ICE CREAM. TAKE IBUPROFEN NEEDED FOR PAIN. SEE YOUR PRIMARY CARE DOCTOR FOR FOLLOW UP AND MANAGEMENT Referrals: EDUARDO DIEGO DO (PCP) Time of Disposition: 19:16 I have reviewed the case, and I agree with, Diagnosis and Plan JURGEN MILNER Sep 16, 2025 16:56
[2025-09-16 17:03] LABS: APPEARANCE,URINE CLEAR (CLEAR); GLUCOSE, URINE (UA) NEGATIVE (NEGATIVE); LEUKOCYTE ESTERASE ,URINE NEGATIVE Leu/uL (NEGATIVE); NITRATE,URINE NEGATIVE (NEGATIVE); OCCULT BLOOD,URINE NEGATIVE (NEGATIVE)
[2025-09-16 17:05] LABS: ADD UA MICROSCOPIC YES
[2025-09-16 17:07] LABS: SQUAMOUS EPITHELIAL CELL,UR MOD /HPF (0-2)
--- NOTE | 2025-09-16 17:30 | NUR ---
ASSUMED CARE AT THIS TIME.
[2025-09-16 17:36] LABS: IMMATURE GRANULOCYTE ABSOLUTE 0.01 K/uL (0-1); NUCLEATED RED BLOOD CELLS 0.0 % (0.0-0.19); PLATELET COUNT (AUTO) 234 K/uL (130-400); RED BLOOD CELL COUNT(AUTO) 4.51 MIL/uL (4.00-5.50); RED CELL DISTRIBUTION WIDTH 12.9 % (11.0-15.5); WHITE BLOOD COUNT (AUTO) 7.7 K/uL (4.8-10.8)
[2025-09-16 17:43] LABS: CREATININE 0.6 mg/dL (0.5-1.0); GLOMERULAR FILTR. RATE CALC 101.0 mL/min (>90); GLUCOSE,RANDOM 94.0 mg/dL (70-105); SODIUM SERUM 137.0 mmol/L (136-145); UREA NITROGEN, BLOOD 10.0 mg/dL (7-18)
--- NOTE | 2025-09-16 18:44 | HMCIMG ---
EXAMINATION: COMPLETE TRANSABDOMINAL ULTRASOUND OF PELVIS. CLINICAL HISTORY: Suprapubic and pelvic pain. COMPARISON: None provided. TECHNIQUE: Multiple real-time grayscale images of the pelvis were obtained with transabdominal transducer. FINDINGS: The uterus is not visualized, post hysterectomy status. Both the ovaries are obscured by overlying bowel gas. There is no free fluid in the pelvis. IMPRESSION: Post hysterectomy status No significant abnormality. /[place]
--- NOTE | 2025-09-16 19:05 | NUR ---
REPORT GIVEN TO Charity HOFFMAN RN FOR CONTINUITY OF PATIENT CARE.
[2025-09-16] MEDS ORDERED: IBUP-2077 PO (19:17)
[2025-09-16 19:26] VITALS: BP 146/79; PULSE 57; RESP 18; TEMP 98.2; O2SAT 98
== END 2025-09-16 19:28 | disposition home or self-care (01) ==
LOC: EDH 16:37
DX: R10.20 Pelvic and perineal pain unspecified side (principal); E73.9 Lactose intolerance, unspecified; Z90.49 Acquired absence of other specified parts of digestive tract; Z90.710 Acquired absence of both cervix and uterus
CPT/HCPCS: 36415; 76857; 80048; 81001; 83690; 85025; 99284